=== PATIENT | female | born 1960 | race Two or more races ===

== ENCOUNTER → 2024-05-18 | Outpatient (CLI) | payer BC, SELFPAY ==
--- NOTE | 2024-05-18 08:20 | XR_ITS ---
Examination: Lumbar spine 7 views TECHNIQUE: AP, lateral, coned lateral lower lumbar spine, standing lateral flexion, standing lateral extension, MUÑOZ, FIJIAN 7 views lumbar spine Exam date and time: May 18, 2024 0834 hours INDICATIONS: Lower back pain years. FINDINGS: Grade 1 anterolisthesis L3 on L4 Grade 2 anterolisthesis L4 on L5 No lumbar fracture Anterolisthesis L4 on L5 measures 11 mm in extension and 12 mm in flexion Advanced degenerative disc disease L4-L5 Moderately reduced range of motion between flexion and extension Prominent facet arthropathy Intact pedicles Lumbar dextroscoliosis 10 degrees IMPRESSION: Grade 2 anterolisthesis L4 on L5 with advanced degenerative disc disease at this level
[2024-05-18 10:01] LABS: Albumin, Serum 4.5 gm/dL (3.4-4.8); Anion Gap 5 (7-16); BUN/Creatinine Ratio 20 Ratio (12-20); Blood Urea Nitrogen 16 mg/dL (9-23); Calcium 10.1 mg/dL (8.3-10.6); Calcium (Corrected) 10.1 mg/dL (8.5-10.1); Carbon Dioxide 29.6 mMol/L (20.0-31.0); Chloride 104 mMol/L (98-107); Creatinine (Component) 0.8 mg/dL (0.6-1.3); Glucose 86 mg/dL (74-106); Osmolality,Calculated 277 (275-295); Phosphorous 3.6 mg/dL (2.4-5.1); Sodium 139 mMol/L (136-145); eGFR > 60 See Note
== END | disposition home or self-care (01) ==
LOC: CDIM 08:04 → COPL 08:56
PROVIDERS: PCP Internal Medicine; Visit Provider Radiology Diagnostic Radiology
DX: M51.369 Other intervertebral disc degeneration, lumbar region without mention of lumbar back pain or lower extremity pain (principal); I10 Essential (primary) hypertension
CPT/HCPCS: 36415; 72114; 80069

== ENCOUNTER → 2025-01-24 | Outpatient (CLI) | payer BC, SELFPAY ==
--- NOTE | 2025-01-24 13:00 | XR_ITS ---
Examination: Bone densitometry Date and time of exam:January 24, 2025 1334 hours INDICATIONS: Menopause age 51 Technique: Lumbar spine and hip total bone mineralization values of an calculated. Peak reference and age match control results have been displayed. Findings: Lumbar spine total bone mineralization is1.165 gm/cm2. This is 1.1 standard deviations above peak reference. This is 2.7 standard deviations above age-matched controls. Hip total bone mineralization is 1.108 gm/cm2 This is 1.1 standard deviations above peak reference. This is 2.1 standard deviations above age-matched controls Impression: There is normal mineralization based on lumbar spine measurements. There is normal mineralization based on hip measurements
--- NOTE | 2025-01-24 14:00 | XR_ITS ---
Examination: Screening digital mammography, bilateral Computer aided detection 3-D breast Tomosynthesis, bilateral Date and time of exam: January 24, 2025, 1313 hours, compared to mammograms dating to February 13, 2011 Indication: Screening Technique: Nonmagnified MLO, CC views of the breasts to been obtained, reconstructed from 3-D Tomosynthesis images. R2 computer aided detection program utilized for evaluation of suspicious masses and/or abnormal calcifications. 3-D Tomosynthesis images obtained. Findings: The breasts are heterogeneously dense, which may obscure small masses Stable focal asymmetry outer right breast Benign calcifications No interval suspicious masses Impression: BI-RADS category II: Benign Findings. Recommend 1 year follow-up mammogram.
== END | disposition home or self-care (01) ==
LOC: CDIM 13:02
PROVIDERS: PCP Internal Medicine; Referring Provider Internal Medicine; Visit Provider Internal Medicine
DX: Z12.31 Encounter for screening mammogram for malignant neoplasm of breast (principal); R92.323 Mammographic fibroglandular density, bilateral breasts; R92.1 Mammographic calcification found on diagnostic imaging of breast; M81.0 Age-related osteoporosis without current pathological fracture
CPT/HCPCS: 77063; 77067; 77080

== ENCOUNTER 2025-04-04 06:40 | Day surgery (SDC) | payer BC, SELFPAY ==
[2025-04-04 07:35] VITALS: BP 126/77; PULSE 55; RESP 18; TEMP 36.2; O2SAT 97; BMI 29.9
[2025-04-04 07:40] VITALS: TEMP 36.2
[2025-04-04 07:50] LABS: Alanine Aminotransferase 9 U/L (10-49); Albumin, Serum 4.9 gm/dL (3.4-4.8); Albumin/Globulin Ratio 1.8 (1.2-2.2); Alkaline Phosphatase 59 U/L (46-116); Anion Gap 9 (7-16); Aspartate Amino Transferase 22 U/L (0-34); BUN/Creatinine Ratio 14 Ratio (12-20); Bilirubin,Total 1.3 mg/dL (0.3-1.2); Blood Urea Nitrogen 11 mg/dL (9-23); Calcium 10.3 mg/dL (8.3-10.6); Calcium (Corrected) 10.3 mg/dL (8.5-10.1); Carbon Dioxide 27.1 mMol/L (20.0-31.0); Chloride 105 mMol/L (98-107); Creatinine (Component) 0.8 mg/dL (0.6-1.3); Estimated Creatinine Clearance 62.6 mL/min (>60); Globulin 2.8 gm/dL (2.3-3.5); Glucose 101 mg/dL (74-106); Osmolality,Calculated 280 (275-295); Potassium 4.2 mMol/L (3.4-5.1); Sodium 141 mMol/L (136-145); Total Protein 7.7 gm/dL (5.7-8.2); eGFR > 60 See Note
[2025-04-04] MEDS: RINGERS LACTATED 500 ML 500 ML 125 ML IV (08:01)
[2025-04-04 08:19] VITALS: BP 141/82; PULSE 56; RESP 18; TEMP 36.4; O2SAT 99
[2025-04-04 08:29] VITALS: BP 138/80; PULSE 64; RESP 17; O2SAT 98
[2025-04-04 08:39] VITALS: BP 125/90; PULSE 62; RESP 16; O2SAT 99
[2025-04-04 08:49] VITALS: BP 133/84; PULSE 61; RESP 17; TEMP 36.4; O2SAT 99
--- NOTE | 2025-04-04 09:24 | SUR.PHASEII ---
0850 Pt more awake and alert. Denies pain or N/V. Abd remains soft. Pt passing flatus. Chinmay PO fluids. 0920 Pt assessment unchanged. No complaints. Amb with steady gait. Able to dress self. Pt and given dc instructions. Both state understanding. Pt meets dc criteria-to home.
== END 2025-04-04 09:20 | disposition home or self-care (01) ==
PROVIDERS: PCP Internal Medicine; Referring Provider Surgery; Visit Provider Surgery
PROC: 0DBE8ZX Excision of Large Intestine, Via Natural or Artificial Opening Endoscopic, Diagnostic (ICD-10-PCS; CPT 45380; principal; 2025-04-04 08:00)
DX: Z12.11 Encounter for screening for malignant neoplasm of colon (principal); Z86.0100 Personal history of colon polyps, unspecified; K62.89 Other specified diseases of anus and rectum; K64.1 Second degree hemorrhoids; K57.30 Diverticulosis of large intestine without perforation or abscess without bleeding
CPT/HCPCS: 45378; 36415; 80053; A4649; J7120